=== PATIENT | male | born 1980 | race Caucasian/White ===

== ENCOUNTER 2016-09-22 09:25 | Emergency (ER) | payer OTHER ==
[~2016-09-22] VITALS: Ht 175.3 cm; Wt 69.6 kg
[~2016-09-22 09:25] MED LIST: MOTRIN800 MG PO; NOHOMEMEDS; PEN-VEE K,VEET500 MG PO; PROMETHAZINE HC25 M1 PO; TORADOL10 MG PO; ULTRAM50 MG PO; ZOFRAN ODT4 MG PO; ZOFRAN4 MG PO; ZOLOFT25 MG PO
[2016-09-22 09:46] LABS: HEMATOCRIT 47.3 % (38.0-50.0); MCH 30.2 PG (29.0-34.0); MCHC 34.2 G/DL (30.0-36.0); MCV 88.2 FL (86-99); MEAN PLAT.VOLUME 10.4 uM^3 (9.0-12.4); PLATELET COUNT 280 K/uL (156-360); RBC DIS.WIDTH-CV 11.3 % (11.8-14.6); RBC DIS.WIDTH-SD 36.4 % (39-53); RED BLOOD COUNT 5.36 M/uL (4.00-5.50); WHITE BLOOD COUNT 7.2 K/uL (4.1-10.2)
[2016-09-22 10:04] LABS: CHLORIDE 98 mEq/L (99-109); POTASSIUM 3.4 mEq/L (3.7-5.4); SODIUM 138 mEq/L (136-147)
[2016-09-22 10:06] LABS: GLUCOSE 110 mg/dL (70-99)
[2016-09-22 10:07] LABS: ANION GAP 14 MEQ/L (2-14)
[2016-09-22 10:08] LABS: TOTAL BILIRUBIN 2.1 mg/dL (0.0-1.0)
[2016-09-22 10:09] LABS: ALKALINE PHOSPHATASE 77 IU/L (3-129)
[2016-09-22 10:10] LABS: GFR ESTIMATE (CALCULATED) > 59 mL/min/
[2016-09-22 10:11] LABS: UREA NITROGEN (BUN) 18 mg/dL (9-23)
[2016-09-22 12:05] LABS: ADD MIUA? YES; BILIRUBIN NEGATIVE; BLOOD SMALL; COLOR YELLOW ((YELLOW)); GLUCOSE (STRIP) NEGATIVE; KETONES 20; LEUKOCYTES NEGATIVE; NITRITE NEGATIVE; PROTEIN (STRIP) 100; SPECIFIC GRAVITY 1.028 (1.000-1.030)
[2016-09-22 12:14] LABS: BACTERIA RARE /HPF; EPITHELIAL CELLS RARE /HPF; MUCUS 2+ /LPF; RED BLOOD CELLS 0-5 /HPF (0-5); UCUL ADDED? NO; WHITE BLOOD CELLS 0-5 /HPF (0-5)
[2016-09-22] MEDS ORDERED: AMOXICILLIN500 M1 PO (13:11)
[2016-09-22] MEDS ORDERED: BENTYL20 MG PO (13:11)
[2016-09-22] MEDS ORDERED: ZOFRAN ODT4 MG PO (13:11)
[2016-09-22 13:24] VITALS: BP 118/71
== END 2016-09-22 13:26 | disposition home or self-care (01) ==
LOC: EME 09:25
DX: R10.9 Unspecified abdominal pain (principal); R11.10 Vomiting, unspecified; K04.7 Periapical abscess without sinus; K21.9 Gastro-esophageal reflux disease without esophagitis
CPT/HCPCS: 74022; 80053; 81003; 85027; 99281; 99285; J1885; J2405; J7030